=== PATIENT | male | born 1965 | race Two or more races ===

== ENCOUNTER 2019-01-11 06:44 | Outpatient (CLI) | payer OTHER | END 2019-01-11 07:40 | disposition home or self-care (01) | LOC: LAB 06:44 | DX: E11.65 Type 2 diabetes mellitus with hyperglycemia (principal); E78.00 Pure hypercholesterolemia, unspecified ==

== ENCOUNTER → 2019-05-11 06:59 | Outpatient (CLI) | payer OTHER | END | disposition home or self-care (01) | LOC: LAB 06:59 | DX: E03.8 Other specified hypothyroidism (principal); E78.00 Pure hypercholesterolemia, unspecified; E11.65 Type 2 diabetes mellitus with hyperglycemia ==